=== PATIENT | female | born 1950 | race Asian ===

== ENCOUNTER → 2018-03-03 13:26 | Outpatient (CLI) | payer MEDICARE, OTHER, SELFPAY ==
--- NOTE | 2018-03-03 15:01 | PM.TREADMILL ---
Cardiac Stress Test Report Referral & Results Date Patient Seen: 03/03/18 Requesting provider: Nestor Giraldo Indication: Chest pain, patient with known coronary disease Rest ECG: Unremarkable Procedure Note: Today following both written and verbal informed consent, the patient was exercised according to a standard Jacinto protocol. The patient exercised for a total of 10 min 5 sec achieving a maximum heart rate of 159. Patient's maximum systolic blood pressure was 180. This was an estimated 12.8 MET's. With exercise patient did develop some flat to minimally downsloping and minimal ST segment depression in inferior leads in V4 through V6. These rapidly resolved with cessation of activity and less than 60 sec the suggesting a benign nature Frequent PVCs including couplets and very brief runs of ventricular bigeminy were noted at rest but as heart rate increase this disappeared completely and returned upon reduction heart rate in recovery Functional aerobic impairment is way way off the scale estimate her functional capacity to be equal to that of an active 32-year-old Impression: Very nonspecific ST segment changes not likely to be ischemic based on the atypical nature and the rapid resolution with cessation of activity as well as her outstanding exercise capacity Dysrhythmia as above not likely serious given its disappearance with increased heart rates Amazing exercise capacity as noted above as well Please note: Actual ECG tracings can be found in the PACS system.
== END ==
PROVIDERS: PCP Family Medicine; Visit Provider Family Medicine
DX: R07.9 Chest pain, unspecified (principal); I25.10 Atherosclerotic heart disease of native coronary artery without angina pectoris
CPT/HCPCS: 93016; 93017; 93018

== ENCOUNTER → 2018-03-31 09:56 | Outpatient (CLI) | payer MEDICARE, OTHER, SELFPAY ==
--- NOTE | 2018-03-31 | DI.US.S_ITS ---
PROCEDURE: US THYROID INDICATIONS: THYROID NODULE TECHNIQUE: Real-time scanning was performed of the thyroid gland, with image documentation. COMPARISON: None. FINDINGS: Right: Thyroid lobe measures 3 x 1.2 x 1.2 cm, and is homogeneous in echotexture. Left: Thyroid lobe measures 3.6 x 1.4 x 0.7 cm, and is homogenous in echotexture. Isthmus: 2 mm thick. Additional, dedicated ultrasound scanning is performed at the area of clinical concern involving the right supraclavicular region. No focal ultrasound abnormalities are seen within this region. IMPRESSION: Normal thyroid. No ultrasound abnormalities are seen at the area of concern involving the right supraclavicular region. Dictated by: Padilla Marquez M.D. on 03/31/2018 at 11:37 Approved by: Padilla Marquez M.D. on 03/31/2018 at 11:38
== END ==
PROVIDERS: PCP Family Medicine; Visit Provider Family Medicine
DX: E04.1 Nontoxic single thyroid nodule (principal)
CPT/HCPCS: 76536

== ENCOUNTER → 2018-05-07 13:29 | Outpatient (CLI) | payer MEDICARE, OTHER, SELFPAY ==
--- NOTE | 2018-05-07 13:31 | DI.RAD.S_ITS ---
PROCEDURE: XR CERVICAL SPINE 4V OR 5V INDICATIONS: Cervical spondylosis TECHNIQUE: 5 views of the cervical spine acquired. COMPARISON: None. FINDINGS: Bones: No fractures or dislocations to the T1 level. There is mild degenerative disc disease at C5-C6. Mild facet arthropathy at C4 55 on the right. Oblique images demonstrate mild bony foraminal stenosis at C5-C6 on the right. No left foraminal stenosis. Soft tissues: No prevertebral soft tissue swelling. IMPRESSION: 1. Mild degenerative disc and facet disease. 2. Mild foraminal stenosis at C5-C6 on the right. Dictated by: Shruti Deluna M.D. on 05/07/2018 at 14:21 Approved by: Shruti Deluna M.D. on 05/07/2018 at 14:22
--- NOTE | 2018-05-07 13:31 | DI.RAD.S_ITS ---
PROCEDURE: XR LUMBAR SPINE MIN 4V INDICATIONS: Lumbar spondylosis TECHNIQUE: 5 views of the lumbar spine were acquired. COMPARISON: None. FINDINGS: Bones: 5 nonrib-bearing vertebrae are present. There is minimal retrolisthesis of L1 on L2. No vertebral body compression fractures. No suspicious bony lesions. There is moderate degenerative disc disease at L1-L2 and mild degenerative disc disease at L2-L3, L3-L4 and L4-L5. There is moderate facet arthropathy at L3-L4, L4-L5 and L5-S1. Soft tissues: Overlying bowel gas pattern is normal. There is a large calcified gallstone. Oblique images: No pars defects. IMPRESSION: 1. Degenerative disc disease in lumbar spine. 2. Facet arthropathy in lumbar spine. 3. A large gallstone. Dictated by: Shruti Deluna M.D. on 05/07/2018 at 14:27 Approved by: Shruti Deluna M.D. on 05/07/2018 at 14:29
== END ==
PROVIDERS: PCP Family Medicine; Visit Provider Physical Medicine & Rehabilitation
DX: M50.122 Cervical disc disorder at C5-C6 level with radiculopathy (principal); M47.22 Other spondylosis with radiculopathy, cervical region; M48.02 Spinal stenosis, cervical region; M47.816 Spondylosis without myelopathy or radiculopathy, lumbar region; M51.36 Other intervertebral disc degeneration, lumbar region; K80.20 Calculus of gallbladder without cholecystitis without obstruction; R20.2 Paresthesia of skin
CPT/HCPCS: 72050; 72110; 99214

== ENCOUNTER 2018-05-22 09:21 | Day surgery (SDC) | payer MEDICARE, OTHER, SELFPAY ==
[2018-05-22] VITALS (9 sets, daily range): BP systolic 87–138; BP diastolic 45–83; PULSE 66–81; RESP 14–21; TEMP 36.2–36.8; O2SAT 94–99; BMI 24.4
--- NOTE | 2018-05-22 | PATH_ITS ---
[facility] Accession Number: [id number] . 01 Material submitted: . PART A: colon - HEPATIC FLEXURE AREA POLYP, COLON POLYP AT 15CM PART B: colon - COLON POLYP AT 15CM . 01 Clinical history: . A: COLON POLYP IN HEPATIC FLEXURE AREA AND COLON POLYP AT 15CM . 02 Diagnosis: A. Colon, Hepatic Flexure, 15 cm, Polyps: Fragment of tubular adenoma and fragments of hyperplastic polyp. . B. Colon at 15 cm, Polyp: Hyperplastic polyp. MRV/05/25/2018 . 02 Electronically signed: . Cornell Dickson MD, PhD, Pathologist NPI- [id number] . 01 Gross description: . Part A: HEPATIC FLEXURE AREA POLYP, COLON POLYP AT 15CM: Received in formalin are multiple fragment(s) of shrestha, soft tissue measuring 0.1 x 0.1 x 0.1 cm to 0.3 x 0.2 x 0.2 cm which is entirely submitted and submitted entirely in 1 cassette(s) Part B: COLON POLYP AT 15CM: Received in formalin are 2 fragment(s) of shrestha, soft tissue measuring 0.1 x 0.1 x 0.1 cm to 0.3 x 0.3 x 0.3 cm which are entirely submitted and submitted entirely in 1 cassette(s) /DMC /D[facility] . 02 Pathologist provided ICD-10: D12.6, K63.5 . 02 CPT . 359342, [id number] Performed at: 01 [facility] [address], [place], [place] [id number] MD Levon Galan MD Phone: [phone] Performed at: 02 [facility] [address] [place] [id number] MD Samantha Philippe MD Phone: [phone]
[2018-05-22] MEDS: SODIUM CHLORIDE 0.9% 1,000 ML 200 ML IV ×2 (10:01→11:25)
--- NOTE | 2018-05-22 10:46 | PM.HP.1 ---
History of Present Illness Date Patient Seen: 05/22/18 Time Patient Seen: 10:46 Chief complaint: [id number] Narrative: Patient is a woman here for screening colonoscopy. Her last exam was 12 years ago. No family history of colon cancer. Patient History Medical History (Updated 05/22/18 @ 10:46 by Chucky Wasserman MD) Essential hypertension with goal blood pressure less than 130/85 (Chronic) Social History household members: spouse Family & Social History Social History: household members spouse Meds Home Medications Medication Instructions Recorded Confirmed Type aspirin 81 mg tablet,delayed 81 mg PO DAILY 05/07/18 05/22/18 History release atorvastatin 20 mg tablet 20 mg PO DAILY #90 tab 05/07/18 05/22/18 History celecoxib 200 mg capsule 200 mg PO DAILY #30 cap 05/07/18 05/22/18 Rx lisinopril 20 mg tablet 20 mg PO DAILY #90 tab 05/07/18 05/22/18 History Allergies Allergy/AdvReac Type Severity Reaction Status Date / Time sulfamethoxazole Allergy Severe shortness Verified 05/22/18 09:42 [From ] of breath trimethoprim [From ] Allergy Severe shortness Verified 05/22/18 09:42 of breath Review of Systems Review of Systems All systems reviewed & are unremarkable except as noted in HPI and below Cardiovascular Comments: Had a recent stress test. She was told was entirely normal and she has a heart of a 32-year-old. Not quite sure why she had it. Gastrointestinal Comments: The patient has a gallstone. She has occasional pain in her upper abdomen. Exam Vital Signs (past 8 hours): - 05/22/18 09:50 Temperature 97.5 F L Pulse Rate 76 Respiratory Rate 15 Blood Pressure 138/80 Pulse Oximetry 95 Oxygen Delivery Method Room Air Narrative Exam Narrative: Pleasant cooperative woman in no apparent distress. Eyes are nonicteric. Lungs are clear to auscultation. Heart irregular rate and rhythm. strip shows either bigeminy or every other beat is a PAC. These are not transmitted as a pulse however. Abdomen is pretty mildly protuberant soft nontender without mass. Alert and oriented x3. Assessment & Plan Assessment & Plan narrative: Here for colonoscopy. I have discussed the procedure and the rationale with the patient including risks of bleeding, perforation which would necessitate a major operation, failure to find remove all lesions and the potential to tattoo. They appeared to understand and wished to proceed.
--- NOTE | 2018-05-22 10:51 | PM.PREOP ---
Pre-operative Note Interval Note History & Physical reviewed/Exam performed by Physician: Yes Changes to H&P: No ASA Class (for procedural sedation): II
[2018-05-22] MEDS: MIDAZOLAM 5 MG/5 ML VIAL IV (11:06)
[2018-05-22] MEDS: fentaNYL 250 MCG/5 ML INJ IV (11:06)
--- NOTE | 2018-05-22 11:21 | PM.OP.ENDO ---
Operative Date/Time/Diagnoses Date of procedure: 05/22/18 Time of procedure: 11:21 Pre-op diagnosis: Screening exam. Last colonoscopy 12 years ago. Post-op diagnosis: same (Three small polyps) Procedure & Clinicians Study performed: Colonoscopy with cold biopsy Same procedure as scheduled: Yes Indications: Screening Surgeon: Chucky Wasserman Procedure Notes SCOAP/Timeout: Performed Procedure in detail: The patient was placed in the left lateral decubitus position and underwent IV sedation directed by the surgeon consisting of fentanyl and Versed. Digital exam was unremarkable perhaps a bit lax anal sphincter.. The scope was inserted and advanced through the rectum into the sigmoid, descending, transverse, and ascending colon. No lesions were seen.. The cecum was reached identified by the ileocecal valve and the appendiceal opening. The scope was gradually brought out. The small Polyps were found at the hepatic flexure and at 15 cm. One of the small lesions at 15 cm was placed with the lesion at the hepatic flexure. All were quite small and benign appearing and this will probably not make any difference. The scope ultimately was retroflexed in the rectum. The appearance was normal.. The scope was removed and the patient tolerated the procedure well. the prep was very good. Scope withdrawal time: 12.75 min Sedation minutes: 22 Findings: polyp Specimen(s): other (Polyps) Complications: none Recommendations: Colonscopy in 5 years Follow up: as needed Disposition: PACU
--- NOTE | 2018-05-22 13:17 | SUR.PHASEII ---
Late entry: Pt left when ready and left in stable condition.
== END 2018-05-22 12:30 | disposition home or self-care (01) ==
PROVIDERS: PCP Family Medicine; Visit Provider Specialist
PROC: 0DJD8ZZ Inspection of Lower Intestinal Tract, Via Natural or Artificial Opening Endoscopic (ICD-10-PCS; CPT 45378; principal; 2018-05-22 10:45)
DX: Z12.11 Encounter for screening for malignant neoplasm of colon (principal); D12.3 Benign neoplasm of transverse colon; K63.5 Polyp of colon; I10 Essential (primary) hypertension
CPT/HCPCS: 45380; 88305; 99152; J2250; J3010

== ENCOUNTER 2019-12-22 02:19 | Inpatient (IN) | payer MEDICARE, OTHER, SELFPAY ==
[2019-12-22] VITALS (13 sets, daily range): BP systolic 93–160; BP diastolic 49–80; PULSE 69–97; RESP 16–18; TEMP 36.2–37.1; O2SAT 95–99; BMI 23.0
--- NOTE | 2019-12-22 02:44 | ED.ABDPAIN ---
HPI - Abdominal Pain General Chief Complaint: Abdominal Pain Stated Complaint: stomach ache,pain Time Seen by Provider: 12/22/19 02:22 History of Present Illness HPI narrative: 68-year-old woman with a history of hypertension, hyperlipidemia, arthritis and gout presents with acute onset severe abdominal pain started at 10:00 p.m. this evening. Was followed by 2 episodes of emesis and 3 episodes of diarrhea none of which had any blood component to it. She describes the pain as severe, including her entire abdomen, crampy and most intense in the right upper quadrant. She does note that she was recently diagnosed with cholelithiasis but has not had recurrent symptoms of right upper quadrant pain or discomfort with eating fatty foods. She describes no fevers, cough, chest pain, palpitations, dyspnea, dysuria or flank pain. Related Data Home Medications Medication Instructions Recorded Confirmed aspirin 81 mg tablet,delayed 81 mg PO DAILY 05/07/18 10/28/18 release atorvastatin 20 mg tablet 20 mg PO DAILY #90 tab 05/07/18 10/28/18 lisinopril 20 mg tablet 20 mg PO DAILY #90 tab 05/07/18 10/28/18 Previous Rx's Medication Instructions Recorded celecoxib 200 mg capsule 200 mg PO DAILY #30 cap 05/07/18 Allergies Allergy/AdvReac Type Severity Reaction Status Date / Time sulfamethoxazole Allergy Severe shortness Verified 12/22/19 02:45 [From ] of breath trimethoprim [From ] Allergy Severe shortness Verified 12/22/19 02:45 of breath Review of Systems Review of Systems Narrative: Remainder of review of systems including constitutional, ENT, cardiovascular, respiratory, GI, , musculoskeletal, skin, neurologic and psychiatric systems reviewed and are unremarkable except as noted in HPI. Patient History Medical History Arthritis (Acute) Biliary colic (Acute) Essential hypertension with goal blood pressure less than 130/85 (Chronic) Gout (Acute) Hyperlipidemia (Acute) Hypertension (Acute) Social History household members: spouse Smoking Status: Never smoker Exam Narrative Exam Narrative: General: Significant distress due to abdominal pain but Able to give a complete and coherent history. Well-nourished well-developed HEENT: Moist mucous membranes, normal sclera with reactive pupils, Neck: supple Respiratory: Lungs are clear to auscultation, no wheezing no rales no rhonchi. Full and symmetrical air movement Cardiac: Regular rate and rhythm no murmurs no bruits Abdomen: Soft, nondistended but tender in all 4 quadrants with increased tenderness in right upper quadrant. Bowel tones are appreciated. No flank pain Skin: Warm and dry, no rashes Neurologic: Grossly neurologically intact with no obvious asymmetries or abnormalities Extremities: No trauma, well perfused Psych: Cooperative, appropriate insight and affect Initial Vital Signs Initial Vital Signs: Vital Signs Temperature 97.7 F 12/22/19 02:45 Pulse Rate 87 12/22/19 02:45 Respiratory Rate 18 12/22/19 02:45 Blood Pressure 144/74 H 12/22/19 02:45 Pulse Oximetry 99 12/22/19 02:45 Course Orders Ordered: ED Orders 12/22/19 00:23 UA Complete [Urinalysis and Microscopic] Stat 12/22/19 02:40 Complete Blood Count AUTO DIFF Stat Comprehensive Metabolic Panel Stat Lipase Stat 12/22/19 02:52 CT abdomen pelvis w con Stat 12/22/19 04:08 COVID19 Stat 12/22/19 05:07 COVID19 Stat Hydromorphone HCl (Dilaudid) 0.5 mg IV Q15MIN PRN PRN Reason: Pain, Last Admin: 12/22/19 04:22 Dose: 0.5 mg Documented by: AMALIA Levofloxacin (Levaquin) 750 mg in 150 mls @ 100 mls/hr IV NOW ONE Stop: 12/22/19 05:37 Last Admin: 12/22/19 04:19 Dose: 100 mls/hr Documented by: AMALIA Discontinued Medications Hydromorphone HCl (Dilaudid) 0.5 mg IV NOW ONE Stop: 12/22/19 02:52 Last Admin: 12/22/19 02:57 Dose: 0.5 mg Documented by: AMALIA Sodium Chloride (Normal Saline 0.9%) 1,000 mls @ 1,000 mls/hr IV BOLUS ONE Stop: 12/22/19 03:50 Last Infusion: 12/22/19 04:13 Dose: 0 mls/hr Documented by: Admin: 12/22/19 02:57 Dose: 1,000 mls/hr Documented by: AMALIA Ondansetron HCl (Zofran) 4 mg IV NOW ONE Stop: 12/22/19 02:52 Last Admin: 12/22/19 02:57 Dose: 4 mg Documented by: AMALIA Vital Signs Vital signs: Vital Signs - 8 hr 12/22/19 02:45 12/22/19 03:26 12/22/19 03:30 Temperature 97.7 F Pulse Rate 87 82 84 Respiratory Rate 18 Blood Pressure 144/74 H 158/80 H 140/63 Pulse Oximetry 99 95 96 12/22/19 04:00 12/22/19 04:28 12/22/19 04:30 Temperature Pulse Rate 85 97 H 94 H Respiratory Rate Blood Pressure 131/63 160/74 H 155/66 H Pulse Oximetry 98 95 99 12/22/19 05:00 Temperature Pulse Rate 89 Respiratory Rate Blood Pressure 135/64 Pulse Oximetry 97 MDM - Abdominal Pain Medical Records Attestation: I reviewed the patient's medical records. Lab Data Attestation: I reviewed the patient's lab results. Result diagrams: 12/22/19 02:40 12/22/19 02:40 Labs: Lab Results 12/22/19 12/22/19 12/22/19 Range/Units 00:23 02:40 02:40 WBC 10.4 (4.5-11.0) X10^3/uL RBC 5.61 H (4.0-5.2) X10^6/uL Hgb 12.6 (12.0-16.0) g/dL Hct 40.3 (36-46) % MCV 71.8 L (80-100) fL MCH 22.5 L (26-34) PG MCHC 31.3 (30-36) % RDW 14.6 (11.6-14.8) % Plt Count 284 (150-400) X10^3/uL Neut % (Auto) 81.9 H (50-75) % Lymph % (Auto) 13.6 L (25-40) % [place] % (Auto) 3.4 (3-14) % Eos % (Auto) 0.1 L (2-4) % Baso % (Auto) 1.0 (0-2) % Neut # (Auto) 8500 H (1525-3652) /uL Lymph # (Auto) 1400 (0772-8203) /uL [place] # (Auto) 300 (0-900) /uL Eos # (Auto) 0 (0-450) /uL Baso # (Auto) 100 (0-100) /uL Sodium 137 (137-145) mmol/L Potassium 3.8 (3.4-5.1) mmol/L Chloride 104 (98-107) mmol/L Carbon Dioxide 28 (22-32) mmol/L BUN 19 H (7-17) mg/dL Creatinine 0.78 (0.52-1.04) mg/dL Estimated GFR > 60.0 (>60) mL/min BUN/Creatinine Ratio 24.4 H (6-22) Glucose 169 H (80-110) mg/dL Calcium 9.3 (8.4-10.2) mg/dL Total Bilirubin 0.5 (0.2-1.3) mg/dL AST 26 (14-36) IU/L ALT 27 (<35) IU/L Alkaline Phosphatase 104 (38-126) U/L Total Protein 7.9 (6.3-8.2) g/dL Albumin 4.3 (3.5-5.0) g/dL Globulin 3.6 (1.7-4.1) g/dL Albumin/Globulin Ratio 1.2 (1.0-2.8) Lipase 63 (23-300) U/L Urine Color Yellow Urine Appearance Clear Urine pH 8.0 (4.5-8.0) Ur Specific [place] 1.020 (1.000-1.035) Urine Protein Negative (Negative) Urine Glucose (UA) Negative (Negative) g/dL Urine Ketones Negative (NEGATIVE) Urine Occult Blood Negative (Negative) Urine Nitrate Negative (Negative) Urine Bilirubin Negative (NEGATIVE) Urine Urobilinogen 0.2 (0.2) E.U./dL Ur Leukocyte Esterase Negative (NEGATIVE) Urine RBC None seen (0-5/HPF) Urine WBC None seen (0-5/HPF) Amorphous Sediment 4+ Urine Bacteria None seen (None) Ur Culture Indicated? Cult not indicated Imaging Data CT scan - abdomen/pelvis: Radiologist's Impression: Acute appendicitis. No periapical focal drainage collection or pneumoperitoneum Dr Mayelin Melgar [facility] Narrative Medical decision making narrative: 68-year-old woman history of acute onset abdominal pain at 10:[address] scan is consistent with acute appendicitis. Labs do not suggest sepsis. COVID test will be performed in anticipation of surgical intervention later this morning. Single dose of IV Levaquin is initiated. Findings are reviewed with patient. Her pain the storm still more periumbilical and radiating up toward the epigastrium but she is tender in quadrants. Last meal was 7:00 a.m. last night. Will contact Dr. De Los Santos. 5:15 She carrie see pt in the department. Agrees with antibiotics. Will review films and anticipate admission with antibiotics to start and will discuss medical versus surgical management with the patient after she has had a chance to examine the patient as well as review CT findings. COVID scan is currently pending. Discharge Plan Departure Patient Disposition: Admitted as Observation Clinical Impression: Acute appendicitis Qualifiers: Acute appendicitis type: with localized peritonitis Appendicitis gangrene presence: without gangrene Appendicitis perforation presence: without perforation Appendicitis abscess presence: without abscess Qualified Code(s): K35.30 - Acute appendicitis with localized peritonitis, without perforation or gangrene Referrals: Nestor Giraldo DO [Primary Care Provider] -
--- NOTE | 2019-12-22 02:52 | DI.CT.S_ITS ---
PROCEDURE: CT ABDOMEN PELVIS W CON INDICATIONS: acute onset severe diffuse abdominal pain, greatest intensity Right upper quadrant TECHNIQUE: After the administration of intravenous contrast, 5 mm thick sections acquired from the diaphragm to the symphysis. 5 mm coronal and sagittal reformats were acquired. For radiation dose reduction, the following was used: automated exposure control, adjustment of mA and/or kV according to patient size. COMPARISON: None. FINDINGS: Image quality: Excellent. ABDOMEN: Lung bases: Lung bases are clear. Heart size is normal. Solid organs: Liver is normal in size and enhancement. Gallbladder contains a moderately large calculus measuring up to 1.7 cm but no evidence of acute cholecystitis is found. No biliary ductal distension is present. . Biliary system is non dilated. Pancreas enhances normally. Spleen is normal in size and enhancement. No adrenal nodules. Kidneys demonstrate normal size and enhancement, without hydronephrosis. Peritoneum and bowel: Bowel loops demonstrate normal wall thickness and caliber. No free fluid or air. Nodes and vessels: No retroperitoneal or mesenteric adenopathy by size criteria. Aorta and inferior vena cava are normal in size. Miscellaneous: No ventral hernias. Note is made of an abnormally dilated and elongated wall thickened appendix with internal calcifications, measuring up to 1.9 cm in diameter, without adjacent periappendiceal abnormal free fluid or of abscess formation. PELVIS: Genitourinary: Bladder wall thickness is normal. Miscellaneous: No inguinal hernias or adenopathy. Bones: No suspicious bony lesions. No vertebral body compression fractures. IMPRESSION: A relatively large gallstone is seen within the gallbladder lumen but there is no definite acute cholecystitis or biliary obstruction. Additionally, there is what likely is chronic appendicitis in this patient with multiple appendicoliths within the appendiceal lumen and dilatation of the appendix to up to 1.9 cm. Minimal adjacent inflammation within the peritoneal fat is present, however. This argues towards a potentially chronic process. Surgical consultation is anticipated. Dictated by: José Miguel Day M.D. on 12/22/2019 at 10:02 Approved by: José Miguel Day M.D. on 12/22/2019 at 10:09
[2019-12-22] MEDS: ONDANSETRON 4 MG/2 ML INJ IV (02:57)
[2019-12-22] MEDS: HYDROMORPHONE 0.5 MG INJ IV ×3 (02:57→06:16)
[2019-12-22] MEDS: SODIUM CHLORIDE 0.9% 1,000 ML 1000 ML IV (02:57)
[2019-12-22 02:59] LABS: Add Manual Diff / Slide Review NO; Basophils Absolute Auto 100 /uL (0-100); Eosinophils Absolute Auto 0 /uL (0-450); Eosinophils Percent Auto 0.1 % (2-4); Hematocrit 40.3 % (36-46); Hemoglobin 12.6 g/dL (12.0-16.0); Lymphocytes Absolute Auto 1400 /uL (1100-4500); Lymphocytes Percent Auto 13.6 % (25-40); Mean Corpuscular HGB Conc 31.3 % (30-36); Mean Corpuscular Hemoglobin 22.5 PG (26-34); Mean Corpuscular Volume 71.8 fL (80-100); Monocytes Absolute Auto 300 /uL (0-900); Monocytes Percent Auto 3.4 % (3-14); Neutrophils Absolute Auto 8500 /uL (1500-7000); Neutrophils Percent Auto 81.9 % (50-75); Platelet Count 284 X10^3/uL (150-400); Red Blood Cell Count 5.61 X10^6/uL (4.0-5.2); Red Cell Distribution Width 14.6 % (11.6-14.8); White Blood Cell Count 10.4 X10^3/uL (4.5-11.0)
[2019-12-22 02:59] LABS: Bacteria Urine None Seen; RBC Urine None Seen (0-5/HPF); WBC Urine None Seen (0-5/HPF)
[2019-12-22 03:01] LABS: Appearance Urine UA CLEAR; Bilirubin Urine UA NEGATIVE (NEGATIVE); Color Urine UA YELLOW; Glucose Urine UA NEGATIVE (Negative); Ketones Urine UA NEGATIVE (NEGATIVE); Leukocyte Esterase Urine UA NEGATIVE (NEGATIVE); Nitrite Urine UA NEGATIVE (Negative); Occult Blood Urine UA NEGATIVE (Negative); Protein Urine UA NEGATIVE (Negative); Urobilinogen Urine UA 0.2 E.U./dL (0.2)
[2019-12-22 03:04] LABS: Alanine Aminotransferase 27 IU/L (<35); Albumin 4.3 g/dL (3.5-5.0); Albumin Globulin Ratio 1.2 (1.0-2.8); Alkaline Phosphatase 104 U/L (38-126); Aspartate Aminotransferase 26 IU/L (14-36); BUN Creatinine Ratio 24.4 (6-22); Bilirubin Total 0.5 mg/dL (0.2-1.3); Blood Urea Nitrogen 19 mg/dL (7-17); Calcium 9.3 mg/dL (8.4-10.2); Carbon Dioxide 28 mmol/L (22-32); Chloride 104 mmol/L (98-107); Estimated Glomerular Filt Rate > 60.0 mL/min (>60); Globulin 3.6 g/dL (1.7-4.1); Glucose 169 mg/dL (80-110); HEMOLYSIS < 15 (0-50); Lipase 63 U/L (23-300); Potassium 3.8 mmol/L (3.4-5.1); Sodium 137 mmol/L (137-145); Total Protein 7.9 g/dL (6.3-8.2)
[2019-12-22 03:11] LABS: Amorphous Sediment Urine 4+; Culture Indicated Urine Cult Not Indicated
[2019-12-22] MEDS: levoFLOXacin 750 MG/150 ML PIGGYBACK 100 MG IV (04:19)
--- NOTE | 2019-12-22 05:49 | DI.US.S_ITS ---
PROCEDURE: US ABDOMEN LIMITED INDICATIONS: RIGHT UPPER QUADRANT ABDOMINAL PAIN. HISTORY GALLSTONES TECHNIQUE: Real-time focused scanning was performed of the abdomen, with image documentation. COMPARISON: None. FINDINGS: Gallstones are present within the gallbladder lumen, including a large calculus at the gallbladder neck, which is not mobile. This measures up to 1.9 cm. The gallbladder is abnormally wall thickened at 3.6 mm, mild in severity. Note is made of normal common duct caliber of 3.6 mm. No pancreatic abnormality is seen. The liver appears hyperechoic in echotexture consistent with mild fatty infiltration. IMPRESSION: Gallstone impacted at the pancreatic neck, mild gallbladder wall thickening likely represents evidence of acute or chronic mild cholecystitis. A nuclear medicine hepatobiliary scan could be utilized to determine patency of the cystic duct. Surgical consultation has been obtained. Dictated by: José Miguel Day M.D. on 12/22/2019 at 9:27 Approved by: José Miguel Day M.D. on 12/22/2019 at 9:30
--- NOTE | 2019-12-22 05:52 | P.HP_ITS ---
History of Present Illness History of Present Illness Date Patient Seen: 12/22/19 Time Patient Seen: 05:30 Chief complaint: stomach ache,pain Narrative: This is a 68 yo woman with history of gall stones, hyperlipidemia, hypertension, and gout who comes in with acute onset severe abdominal pain started at 10:00 p.m. last evening. She had two 2 episodes of emesis and 3 episodes of diarrhea none of which had any blood component to it. She describes the pain as severe, including her entire abdomen, crampy and most intense in the right upper quadrant and right lower quadrants. ROS: She describes no fevers, cough, chest pain, palpitations, dyspnea, dysuria or flank pain. Ten system review is otherwise normal other than as mentioned below and in HPI. PE: GENERAL: Well groomed and cooperative. Appears stated age. Answers questions promptly and appropriately. Vital signs noted. HENT: Normocephalic, atraumatic. Hearing intact. EYES: Conjunctiva pink, sclera white, no periorbital swelling. CARDIOVASCULAR: Regular rate. No pedal edema. RESPIRATORY: Non-tachypneic, breathing comfortably on room air. GASTROINTESTINAL: Abdomen soft and non-distended, tender to palpation in the right upper quadrant and right lower quadrant. Right lower quadrant tenderness is greater than right upper quadrant. GENITALURINARY: No left flank tenderness. Some right flank tenderness is noted MUSCULOSKELETAL: Equal tone and mass bilaterally. SKIN: Warm, dry, soft, appropriate color for ethnicity. No other lesions, rashes, or wounds. NEURO: Alert and Oriented X 3. No gross sensory deficits, or cognitive issues. PSYCH: Appropriate affect and mood. Patient History Medical History Arthritis (Acute) Biliary colic (Acute) Essential hypertension with goal blood pressure less than 130/85 (Chronic) Gout (Acute) Hyperlipidemia (Acute) Hypertension (Acute) Family & Social History Social History: household members spouse Safety & Behavioral: Feels Safe in Current Yes Environment Tobacco & Substance use: Smoking Status Never smoker alcohol intake frequency other Substance Use Type does not use Meds Home Medications and Allergies Home Medications Medication Instructions Recorded Confirmed Type atorvastatin 20 mg tablet 20 mg PO DAILY #90 tab 05/07/18 12/22/19 History celecoxib 200 mg capsule 200 mg PO DAILY #30 cap 05/07/18 12/22/19 Rx lisinopril 20 mg tablet 20 mg PO DAILY #90 tab 05/07/18 12/22/19 History Allergies Allergy/AdvReac Type Severity Reaction Status Date / Time sulfamethoxazole Allergy Severe shortness Verified 12/22/19 02:45 [From ] of breath trimethoprim [From ] Allergy Severe shortness Verified 12/22/19 02:45 of breath Exam Vital Signs (past 8 hours): - 12/22/19 02:45 12/22/19 03:26 12/22/19 03:30 Temperature 97.7 F Pulse Rate 87 82 84 Respiratory Rate 18 Blood Pressure 144/74 H 158/80 H 140/63 Pulse Oximetry 99 95 96 12/22/19 04:00 12/22/19 04:28 12/22/19 04:30 Temperature Pulse Rate 85 97 H 94 H Respiratory Rate Blood Pressure 131/63 160/74 H 155/66 H Pulse Oximetry 98 95 99 12/22/19 05:00 Temperature Pulse Rate 89 Respiratory Rate Blood Pressure 135/64 Pulse Oximetry 97 Oxygen Delivery Method Room Air Objective Imaging CT scan - abdomen: Radiologist's impression: [place] [address] CT Scan Report Signed Patient: Cherelle Matt BMR#: [id number] : 1950cct:[id number] Age/Sex: 68 / FDate of Service: 12/22/19 Loc: QR014-3 Accession Number: [id number] Procedure: CT abdomen pelvis w con Ordering Provider: Sandy Lopez MD PROCEDURE: CT ABDOMEN PELVIS W CON INDICATIONS: acute onset severe diffuse abdominal pain, greatest intensity Right upper quadrant TECHNIQUE: After the administration of intravenous contrast, 5 mm thick sections acquired from the diaphragm to the symphysis. 5 mm coronal and sagittal reformats were acquired. For radiation dose reduction, the following was used: automated exposure control, adjustment of mA and/or kV according to patient size. COMPARISON: None. FINDINGS: Image quality: Excellent. ABDOMEN: Lung bases: Lung bases are clear. Heart size is normal. Solid organs: Liver is normal in size and enhancement. Gallbladder contains a moderately large calculus measuring up to 1.7 cm but no evidence of acute cholecystitis is found. No biliary ductal distension is present. . Biliary system is non dilated. Pancreas enhances normally. Spleen is normal in size and enhancement. No adrenal nodules. Kidneys demonstrate normal size and enhancement, without hydronephrosis. Peritoneum and bowel: Bowel loops demonstrate normal wall thickness and caliber. No free fluid or air. Nodes and vessels: No retroperitoneal or mesenteric adenopathy by size criteria. Aorta and inferior vena cava are normal in size. Miscellaneous: No ventral hernias. Note is made of an abnormally dilated and elongated wall thickened appendix with internal calcifications, measuring up to 1.9 cm in diameter, without adjacent periappendiceal abnormal free fluid or of abscess formation. PELVIS: Genitourinary: Bladder wall thickness is normal. Miscellaneous: No inguinal hernias or adenopathy. Bones: No suspicious bony lesions. No vertebral body compression fractures. IMPRESSION: A relatively large gallstone is seen within the gallbladder lumen but there is no definite acute cholecystitis or biliary obstruction. Additionally, there is what likely is chronic appendicitis in this patient with multiple appendicoliths within the appendiceal lumen and dilatation of the appendix to up to 1.9 cm. Minimal adjacent inflammation within the peritoneal fat is present, however. This argues towards a potentially chronic process. Surgical consultation is anticipated. Dictated by: José Miguel Day M.D. on 12/22/2019 at 10:02 Approved by: José Miguel Day M.D. on 12/22/2019 at 10:09 [place] [address] Ultrasound Report Signed Patient: Cherelle Matt MR#: [id number] : 1950 Acct:[id number] Age/Sex: 68 / F Date of Service: 12/22/19 Loc: 222-1 Accession Number: [id number] Procedure: US abdomen limited Ordering Provider: Felicitas Herrera MD PROCEDURE: US ABDOMEN LIMITED INDICATIONS: RIGHT UPPER QUADRANT ABDOMINAL PAIN. HISTORY GALLSTONES TECHNIQUE: Real-time focused scanning was performed of the abdomen, with image documentation. COMPARISON: None. FINDINGS: Gallstones are present within the gallbladder lumen, including a large calculus at the gallbladder neck, which is not mobile. This measures up to 1.9 cm. The gallbladder is abnormally wall thickened at 3.6 mm, mild in severity. Note is made of normal common duct caliber of 3.6 mm. No pancreatic abnormality is seen. The liver appears hyperechoic in echotexture consistent with mild fatty infiltration. IMPRESSION: Gallstone impacted at the gallbladder neck, mild gallbladder wall thickening likely represents evidence of acute or chronic mild cholecystitis. A nuclear medicine hepatobiliary scan could be utilized to determine patency of the cystic duct. Surgical consultation has been obtained. Dictated by: José Miguel Day M.D. on 12/22/2019 at 9:27 Approved by: José Miguel Day M.D. on 12/22/2019 at 9:30 Labs Result Diagrams: 12/22/19 15:55 12/22/19 15:57 Labs: Laboratory Results - last 24 hr 12/22/19 12/22/19 12/22/19 00:23 02:40 02:40 WBC 10.4 RBC 5.61 H Hgb 12.6 Hct 40.3 MCV 71.8 L MCH 22.5 L MCHC 31.3 RDW 14.6 Plt Count 284 Neut % (Auto) 81.9 H Lymph % (Auto) 13.6 L [place] % (Auto) 3.4 Eos % (Auto) 0.1 L Baso % (Auto) 1.0 Neut # (Auto) 8500 H Lymph # (Auto) 1400 [place] # (Auto) 300 Eos # (Auto) 0 Baso # (Auto) 100 Sodium 137 Potassium 3.8 Chloride 104 Carbon Dioxide 28 BUN 19 H Creatinine 0.78 Estimated GFR > 60.0 BUN/Creatinine Ratio 24.4 H Glucose 169 H Calcium 9.3 Total Bilirubin 0.5 AST 26 ALT 27 Alkaline Phosphatase 104 Total Protein 7.9 Albumin 4.3 Globulin 3.6 Albumin/Globulin Ratio 1.2 Lipase 63 Urine Color Yellow Urine Appearance Clear Urine pH 8.0 Ur Specific [place] 1.020 Urine Protein Negative Urine Glucose (UA) Negative Urine Ketones Negative Urine Occult Blood Negative Urine Nitrate Negative Urine Bilirubin Negative Urine Urobilinogen 0.2 Ur Leukocyte Esterase Negative Urine RBC None seen Urine WBC None seen Amorphous Sediment 4+ Urine Bacteria None seen Ur Culture Indicated? Cult not indicated Assessment & Plan Assessment and plan (1) Acute appendicitis: Qualifiers: Acute appendicitis type: with localized peritonitis Appendicitis abscess presence: without abscess Appendicitis gangrene presence: without gangrene Appendicitis perforation presence: without perforation Qualified Code(s): K35.30 - Acute appendicitis with localized peritonitis, without perforation or gangrene Status: Acute (2) Biliary colic: Status: Acute (3) Chronic cholecystitis: Status: Acute (4) Arthritis: Status: Acute (5) Gout: Status: Acute (6) Hyperlipidemia: Status: Acute (7) Hypertension: Status: Acute Assessment & Plan narrative: This is a 68 yo woman acute appendicitis and history of chronic cholecystitis who comes in with 1 day of severe right upper quadrant and right lower quadrant pain. Her pain is usually just in the right upper quadrant. CT scans consistent with acute appendicitis. The patient prefers not to have surgery. I discussed with the patient the potential for nonsurgical management which would include antibiotics and observation, and possibly going home on antibiotics as long as she does well in the hospital. I have also explained to her that she may not be able to get through this without surgery which may include removing her appendix and her gallbladder. This was discussed with the patient her , and they asked many good questions. They agreed with the plan of IV antibiotics and, for now, nonsurgical management, with close inpatient observation. Plan: Admit to the floor Right upper quadrant ultrasound IV Zosyn Antiemetic as needed Pain medicine as needed IV fluid Repeat interval labs Addendum: The patient's labs are really no worse on repeat this afternoon. Right upper quadrant ultrasound is consistent with a chronic cholecystitis, but no huge inflammatory process appears to be going on there. She has no appetite, and although she vomited several times this morning, she has not vomited or needed any more antiemetics since then. However, she is not eating anything, even on the clear liquid diet. I spoke with the patient and her several times today. Each time I reviewed with them the fact that although we are treating her with antibiotics right now she may not get well enough to go home without having surgery. They continue to prefer nonsurgical intervention if at all possible. This evening I told him we would repeat labs in the morning, and consider advancing her diet if she continues to improve. The patient her are in agreement with this plan COVID-19 COVID-19 status: Negative Result date/Date tested (Pos, Neg/Pending): 12/22/19 Time Spent With Patient Time with patient: 15-24 minutes Quality VTE Deep Vein Thrombosis/Pulmonary Embolism Present on Admission: No
[2019-12-22 05:58] LABS: COVID19 -Nasal RAPID Negative (Negative)
[2019-12-22] MEDS: SODIUM CHLORIDE 0.9% 1,000 ML 100 ML IV ×2 (06:35→18:09)
[2019-12-22] MEDS: PIPERACILLIN-TAZO 3.375 GM/50 ML FROZ.PIGGY IV ×3 (06:35→18:11)
--- NOTE | 2019-12-22 07:03 | PC.NURSE ---
0625 Admitted from ER accompanied by her spouse, via wheelchair diagnosed with acute appendicitis. A & O x4 denies any fall for the last 3 months no fall precautions implemented. Will cont. POC & monitor.
--- NOTE | 2019-12-22 12:11 | CM.DANOTE ---
DCP: Case received, EMR reviewed and met with patient. , Tushar, was also at bedside. Introduced self and role. Was able to obtain information from patient regarding her baseline activity status prior to hospitalization. DCP assessment completed with information currently available. Patient is a 68 year old female who admitted early this morning to the care of the hospitalist/surgical team. PCP; Dr. Giraldo. Payer: confirmed: Medicare/eyefactive. Patient came to the hospital secondary to having abdominal pain, as well as emesis. Patient holds currnt diagnosis of acute appendicitis with peritonitis. Patient is having non-surgical intervention with IV ABO. Met with patient and spouse. She is independent at baseline. Her and her both reside in [place]. P: DCP to continue to follow. Patient should be able to go home once medically stable and does no longer need IV ABO. Brianna Slaughter RN/[employer]
[2019-12-22 16:01] LABS: Add Manual Diff / Slide Review NO; Basophils Absolute Auto 100 /uL (0-100); Basophils Percent Auto 0.4 % (0-2); Eosinophils Absolute Auto 0 /uL (0-450); Hematocrit 35.6 % (36-46); Hemoglobin 10.9 g/dL (12.0-16.0); Lymphocytes Absolute Auto 1400 /uL (1100-4500); Lymphocytes Percent Auto 10.5 % (25-40); Mean Corpuscular HGB Conc 30.8 % (30-36); Mean Corpuscular Hemoglobin 22.1 PG (26-34); Mean Corpuscular Volume 71.9 fL (80-100); Monocytes Absolute Auto 1200 /uL (0-900); Monocytes Percent Auto 9.3 % (3-14); Neutrophils Absolute Auto 10500 /uL (1500-7000); Neutrophils Percent Auto 79.8 % (50-75); Platelet Count 230 X10^3/uL (150-400); Red Blood Cell Count 4.95 X10^6/uL (4.0-5.2); Red Cell Distribution Width 14.9 % (11.6-14.8); White Blood Cell Count 13.2 X10^3/uL (4.5-11.0)
[2019-12-22 16:13] LABS: Magnesium 1.7 mg/dL (1.6-2.3)
[2019-12-22 16:35] LABS: Procalcitonin < 0.05 ng/mL (<0.5)
[2019-12-22 17:03] LABS: Alanine Aminotransferase 20 IU/L (<35); Albumin 3.3 g/dL (3.5-5.0); Albumin Globulin Ratio 1.1 (1.0-2.8); Alkaline Phosphatase 64 U/L (38-126); Aspartate Aminotransferase 23 IU/L (14-36); BUN Creatinine Ratio 20.8 (6-22); Bilirubin Total 0.7 mg/dL (0.2-1.3); Blood Urea Nitrogen 16 mg/dL (7-17); Calcium 8.1 mg/dL (8.4-10.2); Carbon Dioxide 25 mmol/L (22-32); Chloride 108 mmol/L (98-107); Estimated Glomerular Filt Rate > 60.0 mL/min (>60); Globulin 2.9 g/dL (1.7-4.1); Glucose 95 mg/dL (80-110); HEMOLYSIS < 15 (0-50); Potassium 3.7 mmol/L (3.4-5.1); Sodium 137 mmol/L (137-145); Total Protein 6.2 g/dL (6.3-8.2)
[2019-12-22] MEDS: HEPARIN 5,000 UNIT/ML VIAL 5000 UNIT SUBCUT (22:24)
[2019-12-23] VITALS (15 sets, daily range): BP systolic 102–148; BP diastolic 46–73; PULSE 63–88; RESP 15–22; TEMP 35.7–36.9; O2SAT 93–100
--- NOTE | 2019-12-23 | PATH_ITS ---
[facility] Accession Number: [id number] . 01 Material submitted: . appendix - APPENDIX . 01 Clinical history: . STOMACH ACHE, PAIN . 02 Diagnosis: Appendix, Appendectomy: Acute suppurative appendicitis with serositis. No evidence of dysplasia or malignancy. MRV 12/28/2019 1322 Local . 02 Electronically signed: . Samantha Philippe MD, Pathologist NPI- [id number] . 01 Gross description: . The specimen is received in formalin, labeled appendix, and consists of a 7.2 cm in length by 1.5 cm in diameter vermiform appendix with attached shrestha-yellow lobulated mesoappendix measuring 5.5 x 2.0 x 1.5 cm. The serosa is shrestha-pink with fibrinous adhesions and purulent exudate predominantly near the tip. Sectioning reveals a shrestha-pink focally hemorrhagic mucosa and a lumen measuring 1.0 cm in diameter. There is a perforation site located within the tip of the appendix. [employer] sections are submitted, to include the margin (en face, blue), central cross-sections, and bisected tip in cassettes A1-A2. ([id number]) /FRR 12/25/2019 1743 Local . 02 Pathologist provided ICD-10: K35.20 . 02 CPT . 490313 Performed at: 01 [facility] [address] [id number] MD Levon Galan MD Phone: [phone] Performed at: [address] [facility] [id number] [place], [place] [id number] MD Samantha Philippe MD Phone: [phone]
[2019-12-23] MEDS: PIPERACILLIN-TAZO 3.375 GM/50 ML FROZ.PIGGY IV ×4 (00:19→20:28)
[2019-12-23 05:10] LABS: Add Manual Diff / Slide Review NO; Basophils Absolute Auto 0 /uL (0-100); Basophils Percent Auto 0.4 % (0-2); Eosinophils Absolute Auto 100 /uL (0-450); Eosinophils Percent Auto 0.5 % (2-4); Hematocrit 33.4 % (36-46); Hemoglobin 10.3 g/dL (12.0-16.0); Lymphocytes Absolute Auto 2100 /uL (1100-4500); Lymphocytes Percent Auto 18.7 % (25-40); Mean Corpuscular HGB Conc 30.8 % (30-36); Mean Corpuscular Hemoglobin 22.2 PG (26-34); Monocytes Absolute Auto 1300 /uL (0-900); Monocytes Percent Auto 11.5 % (3-14); Neutrophils Absolute Auto 7600 /uL (1500-7000); Neutrophils Percent Auto 68.9 % (50-75); Platelet Count 220 X10^3/uL (150-400); Red Blood Cell Count 4.64 X10^6/uL (4.0-5.2); Red Cell Distribution Width 14.9 % (11.6-14.8)
[2019-12-23 05:16] LABS: Alanine Aminotransferase 15 IU/L (<35); Albumin 2.8 g/dL (3.5-5.0); Alkaline Phosphatase 53 U/L (38-126); Aspartate Aminotransferase 21 IU/L (14-36); BUN Creatinine Ratio 15.5 (6-22); Bilirubin Total 0.9 mg/dL (0.2-1.3); Blood Urea Nitrogen 15 mg/dL (7-17); Calcium 7.7 mg/dL (8.4-10.2); Carbon Dioxide 26 mmol/L (22-32); Chloride 111 mmol/L (98-107); Estimated Glomerular Filt Rate 57.1 mL/min (>60); Globulin 2.8 g/dL (1.7-4.1); Glucose 88 mg/dL (80-110); HEMOLYSIS < 15 (0-50); Potassium 3.5 mmol/L (3.4-5.1); Sodium 137 mmol/L (137-145); Total Protein 5.6 g/dL (6.3-8.2)
[2019-12-23 05:17] LABS: Phosphorous 3.2 mg/dL (2.8-4.1)
[2019-12-23] MEDS: SODIUM CHLORIDE 0.9% 1,000 ML 100 ML IV ×2 (05:23→20:28)
--- NOTE | 2019-12-23 07:15 | P.PN_ITS ---
Subjective Subjective Date Patient Seen: 12/23/19 Time Patient Seen: 09:01 Interval history: No acute events overnight. Patient still has no appetite, and ongoing right lower quadrant pain. Exam Vital Signs (past 8 hours): - 12/23/19 00:00 12/23/19 05:48 Temperature 98.5 F 97.0 F L Pulse Rate 74 65 Respiratory Rate 16 16 Blood Pressure 114/56 L 102/46 L Pulse Oximetry 98 97 Oxygen Delivery Method Room Air Oxygen Flow Rate 0 Narrative Exam Narrative: GENERAL: Alert, comfortable. Appears stated age. Answers questions promptly and appropriately. Vital signs noted. HENT: Normocephalic, atraumatic. Hearing intact. EYES: Conjunctiva pink, sclera white, no periorbital swelling. CARDIOVASCULAR: Regular rate. No pedal edema. RESPIRATORY: Non-tachypneic, breathing comfortably on room air. GASTROINTESTINAL: Abdomen soft and non-distended; tender palpation in the right lower quadrant, positive Rovsing sign GENITALURINARY: No flank tenderness. MUSCULOSKELETAL: Equal tone and mass bilaterally. SKIN: Warm, dry, soft, appropriate color for ethnicity. No other lesions, rashes, or wounds. NEURO: Alert and Oriented X 3. No gross sensory deficits, or cognitive issues. PSYCH: Appropriate affect and mood. Objective Labs Result Diagrams: 12/23/19 04:50 12/23/19 04:50 Labs: Laboratory Results - last 24 hr 12/22/19 12/22/19 12/22/19 15:55 15:55 15:55 WBC 13.2 H RBC 4.95 Hgb 10.9 L Hct 35.6 L MCV 71.9 L MCH 22.1 L MCHC 30.8 RDW 14.9 H Plt Count 230 Neut % (Auto) 79.8 H Lymph % (Auto) 10.5 L [place] % (Auto) 9.3 Eos % (Auto) 0.0 L Baso % (Auto) 0.4 Neut # (Auto) 41962 H Lymph # (Auto) 1400 [place] # (Auto) 1200 H Eos # (Auto) 0 Baso # (Auto) 100 Sodium Potassium Chloride Carbon Dioxide BUN Creatinine Estimated GFR BUN/Creatinine Ratio Glucose Calcium Phosphorus Magnesium 1.7 Total Bilirubin AST ALT Alkaline Phosphatase Total Protein Albumin Globulin Albumin/Globulin Ratio Procalcitonin < 0.05 12/22/19 12/23/19 12/23/19 15:57 04:50 04:50 WBC 11.0 RBC 4.64 Hgb 10.3 L Hct 33.4 L MCV 72.0 L MCH 22.2 L MCHC 30.8 RDW 14.9 H Plt Count 220 Neut % (Auto) 68.9 Lymph % (Auto) 18.7 L [place] % (Auto) 11.5 Eos % (Auto) 0.5 L Baso % (Auto) 0.4 Neut # (Auto) 7600 H Lymph # (Auto) 2100 [place] # (Auto) 1300 H Eos # (Auto) 100 Baso # (Auto) 0 Sodium 137 Potassium 3.7 Chloride 108 H Carbon Dioxide 25 BUN 16 Creatinine 0.77 Estimated GFR > 60.0 BUN/Creatinine Ratio 20.8 Glucose 95 Calcium 8.1 L Phosphorus 3.2 Magnesium 2.0 Total Bilirubin 0.7 AST 23 ALT 20 Alkaline Phosphatase 64 Total Protein 6.2 L Albumin 3.3 L Globulin 2.9 Albumin/Globulin Ratio 1.1 Procalcitonin 12/23/19 04:50 WBC RBC Hgb Hct MCV MCH MCHC RDW Plt Count Neut % (Auto) Lymph % (Auto) [place] % (Auto) Eos % (Auto) Baso % (Auto) Neut # (Auto) Lymph # (Auto) [place] # (Auto) Eos # (Auto) Baso # (Auto) Sodium 137 Potassium 3.5 Chloride 111 H Carbon Dioxide 26 BUN 15 Creatinine 0.97 Estimated GFR 57.1 L BUN/Creatinine Ratio 15.5 Glucose 88 Calcium 7.7 L Phosphorus Magnesium Total Bilirubin 0.9 AST 21 ALT 15 Alkaline Phosphatase 53 Total Protein 5.6 L Albumin 2.8 L Globulin 2.8 Albumin/Globulin Ratio 1.0 Procalcitonin Assessment & Plan Assessment and plan (1) Acute appendicitis: Qualifiers: Acute appendicitis type: with localized peritonitis Appendicitis abscess presence: without abscess Appendicitis gangrene presence: without gangrene Appendicitis perforation presence: without perforation Qualified Code(s): K35.30 - Acute appendicitis with localized peritonitis, without perforation or gangrene Status: Acute (2) Biliary colic: Status: Acute (3) Chronic cholecystitis: Status: Acute (4) Arthritis: Status: Acute (5) Gout: Status: Acute (6) Hyperlipidemia: Status: Acute (7) Hypertension: Status: Acute Assessment & Plan narrative: This is 68-year-old woman with acute appendicitis, and chronic cholecystitis. I had another long discussion with the patient and her this morning. There really on the fence about whether not she wants to go ahead with surgery. They really do not want to have her gallbladder removed. But they are considering going ahead with the appendectomy since she continues to have no appetite and her right lower quadrant pain is no better. Plan: NPO, IV fluids, continue IV antibiotic Hold chemical DVT prophylaxis Addendum: After the patient her discussed with each other, the nurse called me and said that they have decided she would like to go ahead with the appendectomy and is refusing cholecystectomy at this point. Risks and benefits of surgery were discussed with the patient her including bleeding, infection, damage to nearby structures, need for additional procedures, abscess, bowel obstruction, hernia, need for open surgery, ongoing symptoms due to the gallbladder after the appendix was removed, risks of anesthesia. They would like to go ahead with surgery Plan: Schedule for laparoscopic possible open appendectomy to be added onto the surgery schedule today, will likely be around 5:30 this evening COVID-19 COVID-19 status: Negative Result date/Date tested (Pos, Neg/Pending): 12/22/19 Time Spent With Patient Time with patient: Greater than 35 minutes Quality VTE Deep Vein Thrombosis/Pulmonary Embolism Present on Admission: No
[2019-12-23] MEDS: LACTATED RINGERS 1,000 ML 42 ML IV (17:45)
--- NOTE | 2019-12-23 17:59 | PC.NURSE ---
1755 pt being transported via bed to pre-op by EMMA Villatoro.
--- NOTE | 2019-12-23 18:47 | SUR.OPER ---
Supine on padded OR bed, head on pillow, safety belt at thigh, left arm padded and tucked at side. Right arm secured on padded arm oard <90 degrees abduction. Legs uncrossed. Padded footboard in place. Tape over blanket to secure lower legs.
[2019-12-23] MEDS: BUPIVACAINE 0.25% W/ EPI (PF) 10 ML VIAL 20 ML INJ (19:06)
--- NOTE | 2019-12-23 19:38 | P.OP_ITS ---
Operative Date/Time/Diagnoses Date of procedure: 12/23/19 Time of procedure: 19:39 Pre-op diagnosis: Acute appendicitis Post-op diagnosis: same Procedure & Clinicians Procedure: Laparoscopic appendectomy Laparoscopic lysis of adhesions Same procedure as scheduled: Yes Indications: Acute appendicitis, abdominal adhesions Surgeon: Felicitas Herrera Anesthesia Type: General Operative Notes Findings: Necrotic appendix with supporative fluid in the right gutter and pelvis Specimen(s): other (appendix) Estimated Blood Loss (mL): 5 Blood products transfused: none Procedure in detail: The patient was brought into the operating room and placed supine on the OR table. Sequential compression devices were placed on both legs and turned on. Appropriate perioperative antibiotics were given prior to the start of surgery. General anesthesia was induced the patient was intubated. Oconnor catheter was placed sterilely in the bladder. The abdomen was prepped and draped in sterile fashion. Surgical time-out was conducted. Local anesthetic was injected under the skin just superior to the umbilicus and a 5 mm vertical incision was made at this site. The umbilical stalk was grasped with a Juanjose and elevated. A Veress needle was passed through the fascia into proper position. The position was tested with a saline drop test which was appropriate for intra-abdominal Veress needle placement. The abdomen was then insufflated in the usual fashion. Once insufflated to 15 mm Hg the Veress needle was rem jamaal and a 5 mm optical trocar was placed under direct vision using a 5 mm 30 degree scope. Once the camera was inside the abdomen I took a look around. There was no injury from port placement. Two additional ports were placed in a similar fashion in the suprapubic position and left lower quadrant. The umbilical port was upsized to a 12 mm port. In the right lower quadrant there [were omental adhesions up to the abdominal overlying the appendix. These adhesions were taken down with blunt dissection and using ligature for hemostasis.] There was some dark served bilious fluid in the right gutter and in the pelvis. No stool, torres pus, or torres perforation was seen. The patient was placed in Trendelenburg position with right side up. The omentum and small bowel were swept the left and the cecum was exposed. The appendix was seen near the base of the cecum. It was obviously Thickened, firm, and dilated. Starting at the distal tip of the appendix I dissected it free from the abdominal wall and the colon using blunt and sharp dissection with [place] Ligasure. Once I came back to the base of the appendix I carefully dissected it out, protecting the small bowel and the cecum. At no time were we near the ureter. After prolonged dissection the base of the appendix came fully into view where it entered into the cecum. Once the base of the appendix was clearly viewed going directly into the cecum, a blue load 60 mm endoscopic stapler was brought into the field and used to transect the cecum at the base of the appendix. The appendix was removed from the abdomen using an Endo-Catch bag. LigaSure was used to achieve hemostasis on the retroperitoneum and mesoappendix. The staple line was nicely intact without any staple line bleeding. The omentum was adherent to the anterior abdominal wall in the area of the patient's prior surgical incisions, and it was taken down using LigaSure. Once all the omental adhesions to the abdominal wall were lysed, I was able to bring the omentum down to cover the staple line in the raw surface of the retroperitoneum. The entire area was carefully examined for any active bleeding. There was good hemostasis, and all free fluid and blood were suctioned out. There was no spillage of stool. I used the laparoscopic suture passer and closed the umbilical port site with 0 Vicryl suture through the fascia. At this point the insufflation was removed from the abdomen and the port sites were closed with, 3-O Vicryl in the subcutaneous layers, and 4 Monocryl in the skin. Each port site was sealed with Dermabond. Local anesthetic was given at each of the port sites and in the fascia. This concluded the procedure. At this point the needle sponge and instrument counts were correct. The Oconnor was removed. The appendix was passed off the table for pathology. The patient was awakened from anesthesia and extubated. The patient was transferred to the postanesthesia care unit in stable condition. Complications: none Post-operative Condition: stable Disposition: PACU
[2019-12-23] MEDS: HYDROMORPHONE 0.5 MG INJ IV (20:28)
--- NOTE | 2019-12-23 21:39 | PC.NURSE ---
post op 2009 pt to AC from PACU. VSS. pt c/o pain to abdomen, medicated with IV Dilaudid effectively (reference EMAR). BT hypoactive. Denies nausea. Cont O2 monitor on. 3 lap site to abdomen well approximated. ice pack to abdomen. SCDs on. call light in reach and pt's spouse at bedside.
[2019-12-24] MEDS: PIPERACILLIN-TAZO 3.375 GM/50 ML FROZ.PIGGY IV ×4 (00:16→18:30)
[2019-12-24] MEDS: HYDROMORPHONE 0.5 MG INJ IV (00:39)
[2019-12-24 05:20] VITALS: BP 105/69; PULSE 62; RESP 16; TEMP 36.2; O2SAT 100
[2019-12-24 05:26] LABS: Add Manual Diff / Slide Review NO; Basophils Absolute Auto 100 /uL (0-100); Basophils Percent Auto 0.8 % (0-2); Eosinophils Absolute Auto 0 /uL (0-450); Hemoglobin 11.3 g/dL (12.0-16.0); Lymphocytes Absolute Auto 1000 /uL (1100-4500); Lymphocytes Percent Auto 10.9 % (25-40); Mean Corpuscular HGB Conc 30.6 % (30-36); Mean Corpuscular Hemoglobin 22.2 PG (26-34); Mean Corpuscular Volume 72.6 fL (80-100); Monocytes Absolute Auto 100 /uL (0-900); Monocytes Percent Auto 1.1 % (3-14); Neutrophils Absolute Auto 7800 /uL (1500-7000); Neutrophils Percent Auto 87.2 % (50-75); Platelet Count 220 X10^3/uL (150-400); Red Blood Cell Count 5.09 X10^6/uL (4.0-5.2); Red Cell Distribution Width 15.3 % (11.6-14.8); White Blood Cell Count 8.9 X10^3/uL (4.5-11.0)
[2019-12-24 05:38] LABS: BUN Creatinine Ratio 18.1 (6-22); Blood Urea Nitrogen 15 mg/dL (7-17); Carbon Dioxide 25 mmol/L (22-32); Chloride 112 mmol/L (98-107); Estimated Glomerular Filt Rate > 60.0 mL/min (>60); Glucose 108 mg/dL (80-110); HEMOLYSIS < 15 (0-50); Sodium 139 mmol/L (137-145)
[2019-12-24 05:39] LABS: Phosphorous 4.7 mg/dL (2.8-4.1)
[2019-12-24 09:25] VITALS: BP 110/52; PULSE 60; RESP 15; TEMP 36.4; O2SAT 96
[2019-12-24] MEDS: DOCUSATE 100 MG CAPSULE PO ×2 (10:17→21:57)
[2019-12-24] MEDS: OXYCODONE IR 5 MG TABLET PO ×2 (10:17→18:39)
[2019-12-24 13:00] VITALS: BP 111/66; PULSE 58; RESP 15; TEMP 36.4; O2SAT 95
--- NOTE | 2019-12-24 13:25 | PM.PN.1 ---
Subjective Subjective Date Patient Seen: 12/24/19 Time Patient Seen: 08:30 Interval history: No acute events overnight. Pt feeling hungry. Persistent pain. Exam Vital Signs (past 8 hours): - 12/24/19 09:25 12/24/19 13:00 Temperature 97.6 F 97.6 F Pulse Rate 60 58 L Respiratory Rate 15 15 Blood Pressure 110/52 L 111/66 Pulse Oximetry 96 95 Oxygen Delivery Method Nasal Cannula Oxygen Flow Rate 0 Narrative Exam Narrative: Gen: alert, oriented, mild distress due to abdominal pain CARDIOVASCULAR: Regular rate. No pedal edema. RESPIRATORY: Non-tachypneic, breathing comfortably on room air. GASTROINTESTINAL: Abdomen soft, non-distended; appropriate post op TTP MUSCULOSKELETAL: Equal tone and mass bilaterally. SKIN: Warm, dry, soft, appropriate color for ethnicity. No other lesions, rashes, or wounds. PSYCH: Appropriate affect and mood. Objective Labs Result Diagrams: 12/24/19 05:05 12/24/19 05:05 Labs: Laboratory Results - last 24 hr 12/24/19 12/24/19 12/24/19 05:05 05:05 05:05 WBC 8.9 RBC 5.09 Hgb 11.3 L Hct 37.0 MCV 72.6 L MCH 22.2 L MCHC 30.6 RDW 15.3 H Plt Count 220 Neut % (Auto) 87.2 H Lymph % (Auto) 10.9 L Pettis % (Auto) 1.1 L Eos % (Auto) 0.0 L Baso % (Auto) 0.8 Neut # (Auto) 7800 H Lymph # (Auto) 1000 L Pettis # (Auto) 100 Eos # (Auto) 0 Baso # (Auto) 100 Sodium 139 Potassium 4.0 Chloride 112 H Carbon Dioxide 25 BUN 15 Creatinine 0.83 Estimated GFR > 60.0 BUN/Creatinine Ratio 18.1 Glucose 108 Calcium 8.0 L Phosphorus 4.7 H D Magnesium 2.0 Assessment & Plan Assessment and plan (1) Acute appendicitis: Qualifiers: Acute appendicitis type: with localized peritonitis Appendicitis abscess presence: without abscess Appendicitis gangrene presence: without gangrene Appendicitis perforation presence: without perforation Qualified Code(s): K35.30 - Acute appendicitis with localized peritonitis, without perforation or gangrene Status: Acute (2) Biliary colic: Status: Acute (3) Chronic cholecystitis: Status: Acute (4) Arthritis: Status: Acute (5) Gout: Status: Acute (6) Hyperlipidemia: Status: Acute (7) Hypertension: Status: Acute Assessment & Plan narrative: This is 68-year-old woman with acute appendicitis, and chronic cholecystitis. She is POD#1 s/p lap appy. She now has an appetite. We will try advancing her diet, and see if she is able to tolerate PO. We will continue IV zosyn for cholecystitis. Dispo pending she is able to tolerate PO, pain is controlled, and labs improving. COVID-19 COVID-19 status: Negative Result date/Date tested (Pos, Neg/Pending): 12/22/19 Time Spent With Patient Time with patient: Greater than 35 minutes Quality VTE Deep Vein Thrombosis/Pulmonary Embolism Present on Admission: No
--- NOTE | 2019-12-24 14:32 | CM.DPNOTE ---
DCP: continued: Case received, EMR reviewed and POC is noted. Surgery 12/21 eveningL laproscopic appendectomy/CHINEDU is noted and with decision by pt to treat cholecystitis medically in hopes of avoiding surgery. Dr. Herrear states diet will be advanced today, IV antibiotics to continue to treat the cholecystitis and that pt will be ready for a d/c to home when she is tolerating diet, pain is controlled and labs show improvement. Will follow prn for any needs, noting pt plans for a d/c home when with spouse Tushar's support when stable for same.
[2019-12-24] MEDS: HEPARIN 5,000 UNIT/ML VIAL 5000 UNIT SUBCUT ×2 (16:09→21:58)
[2019-12-24 16:33] VITALS: BP 150/79; PULSE 67; RESP 18; TEMP 36.6; O2SAT 100
[2019-12-24] MEDS: SODIUM CHLORIDE 0.9% FLUSH 10 ML IV ×2 (18:31→21:58)
[2019-12-24 20:30] VITALS: BP 113/53; PULSE 67; RESP 18; TEMP 36.8; O2SAT 98
[2019-12-25 00:22] VITALS: BP 134/76; PULSE 63; RESP 18; TEMP 36.4; O2SAT 98
[2019-12-25] MEDS: SODIUM CHLORIDE 0.9% FLUSH 10 ML IV (00:39)
[2019-12-25] MEDS: PIPERACILLIN-TAZO 3.375 GM/50 ML FROZ.PIGGY IV (00:39)
[2019-12-25 05:24] LABS: Add Manual Diff / Slide Review NO; Basophils Absolute Auto 100 /uL (0-100); Basophils Percent Auto 0.7 % (0-2); Eosinophils Absolute Auto 100 /uL (0-450); Eosinophils Percent Auto 1.3 % (2-4); Hematocrit 32.2 % (36-46); Hemoglobin 10.1 g/dL (12.0-16.0); Lymphocytes Absolute Auto 2500 /uL (1100-4500); Lymphocytes Percent Auto 31.7 % (25-40); Mean Corpuscular HGB Conc 31.4 % (30-36); Mean Corpuscular Hemoglobin 22.5 PG (26-34); Mean Corpuscular Volume 71.8 fL (80-100); Monocytes Absolute Auto 700 /uL (0-900); Monocytes Percent Auto 8.8 % (3-14); Neutrophils Absolute Auto 4500 /uL (1500-7000); Neutrophils Percent Auto 57.5 % (50-75); Platelet Count 222 X10^3/uL (150-400); Red Blood Cell Count 4.48 X10^6/uL (4.0-5.2); Red Cell Distribution Width 14.9 % (11.6-14.8); White Blood Cell Count 7.8 X10^3/uL (4.5-11.0)
[2019-12-25 05:31] VITALS: BP 133/65; PULSE 59; RESP 18; TEMP 36.5; O2SAT 97
[2019-12-25 05:35] LABS: BUN Creatinine Ratio 21.5 (6-22); Blood Urea Nitrogen 20 mg/dL (7-17); Calcium 7.9 mg/dL (8.4-10.2); Carbon Dioxide 27 mmol/L (22-32); Chloride 112 mmol/L (98-107); Glucose 104 mg/dL (80-110); HEMOLYSIS < 15 (0-50); Magnesium 2.2 mg/dL (1.6-2.3); Phosphorous 2.9 mg/dL (2.8-4.1); Potassium 3.6 mmol/L (3.4-5.1); Sodium 139 mmol/L (137-145)
[2019-12-25] MEDS: OXYCODONE IR 5 MG TABLET PO (07:00)
--- NOTE | 2019-12-25 08:11 | P.DS_ITS ---
History of Present Illness History of Present Illness Chief complaint: stomach ache,pain Narrative: This is a 68 yo woman with history of gall stones, hyperlipidemia, hypertension, and gout who comes in with acute onset severe abdominal pain started at 10:00 p.m. last evening. She had two 2 episodes of emesis and 3 episodes of diarrhea none of which had any blood component to it. She describes the pain as severe, including her entire abdomen, crampy and most intense in the right upper quadrant and right lower quadrants. ROS: She describes no fevers, cough, chest pain, palpitations, dyspnea, dysuria or flank pain. Ten system review is otherwise normal other than as mentioned below and in HPI. PE: GENERAL: Well groomed and cooperative. Appears stated age. Answers questions promptly and appropriately. Vital signs noted. HENT: Normocephalic, atraumatic. Hearing intact. EYES: Conjunctiva pink, sclera white, no periorbital swelling. CARDIOVASCULAR: Regular rate. No pedal edema. RESPIRATORY: Non-tachypneic, breathing comfortably on room air. GASTROINTESTINAL: Abdomen soft and non-distended, tender to palpation in the right upper quadrant and right lower quadrant. Right lower quadrant tenderness is greater than right upper quadrant. GENITALURINARY: No left flank tenderness. Some right flank tenderness is noted MUSCULOSKELETAL: Equal tone and mass bilaterally. SKIN: Warm, dry, soft, appropriate color for ethnicity. No other lesions, rashes, or wounds. NEURO: Alert and Oriented X 3. No gross sensory deficits, or cognitive issues. PSYCH: Appropriate affect and mood. Discharge Providers Provider Date of admission: 12/22/19 05:43 Discharge Date: 12/25/19 Primary care physician: Nestor Giraldo DO Discharge provider: Felicitas Herrera MD Summary Hospital Course Discharge Diagnosis: Chronic cholecystitis, biliary colic due to gallstones, acute appendicitis Hospital Course: Patient was admitted with right upper quadrant and right lower quadrant pain, nausea, and poor appetite. She is found to have acute appe ndicitis and chronic cholelithiasis/chronic cholecystitis on her CT scan and right upper quadrant ultrasound. After 2 days of antibiotics, her symptoms do not improve, and ultimately she was taken to the operating her to remove her appendix. She declined to have a cholecystectomy. Risks and benefits of all the above were discussed with the patient, including the fact that she may have ongoing attacks of biliary colic, and ultimately have attack of acute cholecystitis which would result in her needing her gallbladder to be removed in the future. She and her were in understanding of these details, and verbalize same. Status at Discharge Cognitive/behavioral status at discharge: at baseline, oriented Functional status at discharge: independent ambulation Overall status at discharge: patient is progressing back to baseline Time Spent with Patient Time spent: Greater than 30 minutes Exam Vital Signs (past 8 hours): - 12/25/19 00:22 12/25/19 05:31 Temperature 97.5 F L 97.7 F Pulse Rate 63 59 L Respiratory Rate 18 18 Blood Pressure 134/76 133/65 Pulse Oximetry 98 97 Oxygen Delivery Method Room Air Oxygen Flow Rate 0 Narrative Exam Narrative: Gen: alert, oriented, mild distress due to abdominal pain CARDIOVASCULAR: Regular rate. No pedal edema. RESPIRATORY: Non-tachypneic, breathing comfortably on room air. GASTROINTESTINAL: Abdomen soft, non-distended; appropriate post op TTP MUSCULOSKELETAL: Equal tone and mass bilaterally. SKIN: Warm, dry, soft, appropriate color for ethnicity. No other lesions, rashes, or wounds. PSYCH: Appropriate affect and mood. Objective Labs Result Diagrams: 12/25/19 05:06 12/25/19 05:06 Labs: Laboratory Results - last 24 hr 12/25/19 12/25/19 12/25/19 05:06 05:06 05:06 WBC 7.8 RBC 4.48 Hgb 10.1 L Hct 32.2 L MCV 71.8 L MCH 22.5 L MCHC 31.4 RDW 14.9 H Plt Count 222 Neut % (Auto) 57.5 D Lymph % (Auto) 31.7 D Stevens % (Auto) 8.8 Eos % (Auto) 1.3 L Baso % (Auto) 0.7 Neut # (Auto) 4500 Lymph # (Auto) 2500 Stevens # (Auto) 700 Eos # (Auto) 100 Baso # (Auto) 100 Sodium 139 Potassium 3.6 Chloride 112 H Carbon Dioxide 27 BUN 20 H Creatinine 0.93 Estimated GFR 60.0 BUN/Creatinine Ratio 21.5 Glucose 104 Calcium 7.9 L Phosphorus 2.9 D Magnesium 2.2 Discharge Assessment & Plan Assessment and Plan Assessment: Status post laparoscopic appendectomy, recovering well Plan of Treatment: Patient is been sent home with plans for p.o. pain medication, advancing diet as tolerated, and avoiding fatty foods due to her gallstones. Plan is for her to follow up in clinic in 2-3 weeks. Discharge Plan Discharge Plan Patient Disposition: Home Provider Discharge Comment: You will be prescribed a narcotic pain medication. You may also use ibuprofen or Aleve as well as Tylenol/ Acetaminophen for pain after surgery. Make sure you do not take more than 3000 mg of Acetaminophen per day from any source. There may be Acetaminophen in your prescription pain medication, cold medications or headache remedies. Using an NSAID such as ibuprofen or Aleve will help with inflammation. Do not take more than recommended. You may take it along with or instead of your prescribed pain medication. Make sure to take the stool softener to prevent constipation from the narcotic pain medication. If you are not able have a bowel movement 24 hours after surgery, or you feel constipated please take an additional laxative such as MiraLax or Senna. Avoid any straining on the toilet. Avoid heavy lifting, pulling, or pushing more than 10 lbs or doing other activities that strain the abdomen or increase the abdominal pressure such as sit-ups, core work outs, and attempt to prevent frequent coughing for four weeks after surgery. Your physical therapist will need to modify your exercises to avoid straining the abdomen, or postpone physical therapy until you have recovered from surgery. If you have fevers, intractable nausea/vomiting, or intractable pain please call the doctor's office or if symptoms are severe come into the ER. If you call after hours please choose the option to contact the surgeon telecommunication operator rather than leaving a message. Discharge orders & Medications Prescriptions: New docusate sodium 100 mg capsule 100 mg PO BID Qty: 20 RF: 0 oxycodone 5 mg tablet 5 mg PO Q6H PRN (Reason: post operative pain) Qty: 20 RF: 0 Continued atorvastatin 20 mg tablet 20 mg PO DAILY Qty: 90 RF: 0 lisinopril 20 mg tablet 20 mg PO DAILY Qty: 90 RF: 0 celecoxib [Celebrex] 200 mg capsule 200 mg PO DAILY Qty: 30 RF: 2 Follow up/Referrals: Nestor Giraldo DO [Primary Care Provider] - Felicitas Herrera MD [Physician] - (Please call the [facility]'s office on Friday and make an appointment to see Dr. Herrera in 2-3 weeks) Diet/Activity/Treatments Diet: Diet as Tolerated Skin/Wound/Dressing Care Report to your healthcare provider any signs of infection, such as:: chills, fever, night sweats, increased pain, unusual drainage and unusual redness Visit Report/Discharge Packet Instructions: DI for an Appendectomy, DI for Prescription Opioid Use, [facility]: Wound Care Stand Alone Forms: Surgery Discharge Visit Report Forms: Patient Portal/API, Stroke Signs & Symptoms Discharge Data Primary Care Provider: Nestor Giraldo Discharges patient from system. Discharge Date/Time: 12/25/19 10:15 Quality VTE Deep Vein Thrombosis/Pulmonary Embolism Present on Admission: No
[2019-12-25 08:51] VITALS: BP 128/71; PULSE 60; RESP 14; TEMP 36.2; O2SAT 98
[2019-12-25] MEDS: DOCUSATE 100 MG CAPSULE PO (09:10)
--- NOTE | 2019-12-25 09:45 | PC.NURSE ---
Addendum entered by Desirae Lazcano R.N. 12/25/19 10:47: Home via private vehicle, accompanied by spouse. Original Note: Day shift note: Awake, alert, and very pleasant. Up OOB ambulating in room independently, steady gait. Surgical incisions to abdomen, secured with dermabond. Tolerating breakfast this am, no nausea or vomiting. Abdomen soft, + BS, + flatus. VSS and afebrile. Discharge instructions given to patient and spouse, discussed importance of F/U with Dr. Herrera in 2-3 weeks, s/sx of infections, new medications, diet, activity, and wound care. Both verbalized understanding of instructions. Patient dressed self for discharge.
--- NOTE | 2019-12-25 10:54 | CM.DPC ---
DCP: continued: Case discussed in Team Rounds with d/c anticipated later today. A check in now after rounds shows that pt did d/c to home in company of her spouse as per plan.
== END 2019-12-25 10:15 | disposition home or self-care (01) | DRG 342 ==
LOC: ED 05:18 → AC 05:44
PROVIDERS: Admitting Provider Surgery; Emergency Provider Emergency Medicine; PCP Family Medicine; Referring Provider Emergency Medicine; Visit Provider Surgery
PROC: 0DTJ4ZZ Resection of Appendix, Percutaneous Endoscopic Approach (ICD-10-PCS; CPT 44970; principal; 2019-12-23 17:30)
DX: K35.30 Acute appendicitis with localized peritonitis, without perforation or gangrene (principal); K80.10 Calculus of gallbladder with chronic cholecystitis without obstruction; I10 Essential (primary) hypertension; Z11.59 Encounter for screening for other viral diseases; E78.5 Hyperlipidemia, unspecified
CPT/HCPCS: 36415; 44970; 74177; 76705; 80048; 80053; 81001; 83690; 83735; 84100; 84145; 85025; 87635; 96361; 96365; 96366; 96375; 96376; 99222; 99284; J0330; J1100; J1170; J1644; J1956; J2405; J2543; J2704; J3010; Q9967

== ENCOUNTER → 2020-04-21 12:47 | Outpatient (CLI) | payer MEDICARE, OTHER, SELFPAY ==
[2019-12-27 13:46] VITALS: BMI 23.0
[2020-04-21 13:15] LABS: COVID19 -Nasal RAPID Negative (Negative)
== END ==
PROVIDERS: PCP Family Medicine; Visit Provider Physician Assistant
DX: Z20.822 Contact with and (suspected) exposure to COVID-19 (principal)
CPT/HCPCS: 87635